=== PATIENT | female | born 1970 ===

== ENCOUNTER 2017-03-02 08:31 | Day surgery (SDC) | payer OTHER ==
[2017-02-21 14:07] VITALS: BMI 27.3
[~2017-03-02 08:31] MED LIST: Acetaminophen-Codeine 300/30 mg Tab PO PRN; Dextrose 5%/0.45% NS 1,000 ML IV SCH; ceFAZolin 1 gm FROZEN Premix 0 GM/0 ML ML IVPB ONE
[2017-03-02] MEDS ORDERED: Lactated Ringer's 1,000 ML IV ONE (11:10)
[2017-03-02] MEDS ORDERED: Midazolam 2 MG/2 ML VIAL ONE (11:19)
[2017-03-02] MEDS ORDERED: Propofol 10 mg/ml Inj (20 ML) ONE ×2 (11:19→11:36)
[2017-03-02] MEDS ORDERED: ePHEDrine 50 mg/ml Inj ONE (11:39)
[2017-03-02] MEDS ORDERED: Bacitracin Ointment 30 GM TUBE ONE (11:51)
[2017-03-02 13:04] VITALS: RESP 18
[2017-03-02 14:21] VITALS: BP 106/61; PULSE 69; TEMP 98; O2SAT 100
--- NOTE | 2017-03-03 16:18 | OP ---
PROCEDURE DATE: 03/02/2017 PREOPERATIVE DIAGNOSIS: Earlobe laceration. POST OPERATIVE DIAGNOSIS: Earlobe laceration. PROCEDURE: Bilateral earlobe laceration repair. SIGNIFICANT FINDINGS: Ear lobe laceration. DESCRIPTION OF PROCEDURE: The patient was brought in room, placed in supine position. Anesthesia wa s initiated through IV sedation. The patient's head was turned. The left ear was prepped and draped in the usual sterile manner. The edges of the incision and that were facing each other were denuded of scar tissue. It was noted that the incision was not through the ear lobe all the way inferiorly, sutures were used to approximate the edges together after they were freshened up by removing the sca r tissue. The head was turned. The other ear was prepped and draped in the usual sterile manner. I t was noted that this laceration also did not go through and through all the way inferiorly to the ea r lobe. The scar tissue that was on the inner side of the incision was removed to denude the edges a nd create fresh edges. Sutures were used to suture the 2 sides together. At that point, the patient was taken off anesthesia and taken to recovery room in stable manner. Shane Massey MD cc: [id number] TT: 03/03/2017 16:18:25 jn
== END 2017-03-02 13:50 | disposition home or self-care (01) ==
LOC: C.SDS 08:31
PROVIDERS: ATTEND Otolaryngology
DX: H61 Other disorders of external ear (principal); L91.0 Hypertrophic scar
CPT/HCPCS: 11442; J1100; J2250; J2405; J2704; J3010; J7120

== ENCOUNTER 2017-04-12 01:12 | Emergency (ER) | payer OTHER ==
[2017-04-12 01:13] VITALS: BMI 27.3
[2017-04-12] MEDS ORDERED: Sodium Chloride 0.9% 1,000 ML IV ONE (01:56)
[2017-04-12] MEDS ORDERED: Sodium Chloride 0.9% 1,000 ML ONE (02:05)
--- NOTE | 2017-04-12 02:33 | C.PDOC ---
History Of Present Illness 46 year old patient presents to the ED complaining of a right sided headache for 3 days. Patient states she feels a heat sensation to her face and as if hot water if running down the side of her head. She notes she had mild light headedness on the first day, but it resolved. She still has associated symptoms of nausea and photophobia. Patient also complains of a sour taste in her mouth and thirst. Patient denies fever or vomiting. Time Seen by Provider: 04/12/17 01:41 Chief Complaint (Nursing): Headache History Per: Patient History/Exam Limitations: no limitations Onset/Duration Of Symptoms: Days (3) Current Symptoms Are (Timing): Still Present Severity: Mild Pain Scale Rating Of: 3 Quality: "Pain" Preceeding Symptoms: None Associated Symptoms: Photophobia, Nausea Recent travel outside of the [place]: No Past Medical History Reviewed: Historical Data, Nursing Documentation, Vital Signs Vital Signs: Last Vital Signs Temp 97 F L 04/12/17 01:21 Pulse 74 04/12/17 01:21 Resp 18 04/12/17 01:21 BP 127/87 04/12/17 01:21 Pulse Ox 98 04/12/17 04:53 - Medical History PMH: Anxiety, Asthma, Depression, Gastritis, Gall Bladder Disease Surgical History: Cholecystectomy, Endoscopy - [facility] Procedures LAPAROSCOP LYSIS-PERITONEAL ADHES (05/21/15) LAPAROSCOPIC CHOLECYSTECTOMY (05/21/15) Family History: States: Unknown Family Hx - Social History Hx Alcohol Use: No Hx Substance Use: No Review Of Systems Except As Marked, All Systems Reviewed And Found Negative. Constitutional: Negative for: Fever ENT: Positive for: Other (sour taste in mouth; increased thirst) Cardiovascular: Positive for: Light Headedness. Negative for: Chest Pain, Palpitations Gastrointestinal: Positive for: Nausea. Negative for: Vomiting Musculoskeletal: Negative for: Neck Pain Skin: Negative for: Rash Neurological: Positive for: Headache, Other (photophobia). Negative for: Weakness, Numbness Physical Exam - Physical Exam Appears: Non-toxic, No Acute Distress Skin: Warm, Dry Head: Atraumatic, Normacephalic Eye(s): bilateral: Normal Inspection, PERRL, EOMI Ear(s): Bilateral: Normal Nose: Normal Oral Mucosa: Moist Throat: Normal Neck: Normal ROM, Supple Chest: Symmetrical Cardiovascular: Rhythm Regular Respiratory: Normal Breath Sounds, No Rales, No Rhonchi, No Wheezing Back: Normal Inspection, No CVA Tenderness Extremity: Bilateral: Atraumatic, Normal Color And Temperature, Normal ROM Neurological/Psych: Oriented x3, Normal Speech, Normal Cranial Nerves, No Cerebellar Signs, Normal Motor, Normal Sensation Gait: Steady Other Neurological Findings: No Facial Palsy, No Tongue Deviation ED Course And Treatment O2 Sat by Pulse Oximetry: 98 (room air) Pulse Ox Interpretation: Normal - CT Scan/US Head CT Other Rad Studies (CT/US): Read By Radiologist (Sena Velázquez MD), Radiology Report Reviewed CT/US Interpretation: EXAM: CT Head Without Intravenous Contrast. CLINICAL HISTORY: 46 years old, female; Pain; Headache; Other: Headache, hot feeling , dizzy; Additional info: Headache, dizzy. TECHNIQUE: Axial computed tomography images of the head/brain without intravenous contrast. This CT exam. was performed using one or more of the following dose reduction techniques: automated exposure. control, adjustment of the mA and/or kV according to patient size, and/or use of iterative. reconstruction technique. EXAM DATE/ TIME: Exam ordered 04/12/2017 1:56 AM. COMPARISON: No relevant prior studies available. FINDINGS: Brain: Unremarkable. No hemorrhage. No significant white matter disease. No edema. Ventricles: Unremarkable. No ventriculomegaly. Bones /joints: No fractures. Soft tissues: Unremarkable. Sinuses: Unremarkable as visualized. No acute sinusitis. Mastoid air cells: Mastoid air cells are clear. Other findings: This study was protocoled on site and performed as per site directions, the images. were subsequently sent for review by radiology. IMPRESSION: No mass effect, midline shift, or hemorrhage on axial noncontrast head CT. Medical Decision Making Medical Decision Making: Impression: 46 y/o female with right sided headache Plan: * Head CT * Reglan * IV fluids Progress: CT scan shows no abnormality Upon reevaluation patient resting comfortably i n bed and reports feeling better , headache has much improved. Patient remained afebrile and normal neuro exam. Patient feels comfortable going home and will be discharged. Patient given follow up instructions. Instructed to return to ER if symptoms worsen or new symptoms arise. Disposition Counseled Patient/Family Regarding: Studies Performed, Diagnosis, Need For Followup, Rx Given - Disposition Referrals: [facility] [Outside] [facility] [Outside] Disposition: HOME/ ROUTINE Disposition Time: 04:18 Condition: STABLE Additional Instructions: Vaya a daniel mdico o la clnica en 2-5 rivera sin falta, para mas evaluacin. Dixon los medicamentos heaven indicado. Volver a la jessica de emergencia en cualquier momento si los sntomas persisten o empeoran. Prescriptions: Acetaminophen/Butalbital/Caf [Fioricet] 1 tab PO TID PRN #20 tab PRN Reason: Headache Instructions: Migraine Headache (ED) Print Language: TAMAZIGHT - POA Present On Arrival: None - Clinical Impression Clinical Impression: Migraine - PA / AUTOBODY TECHNICIAN / Resident Statement MD/DO has reviewed & agrees with the documentation as recorded. - Scribe Statement The provider has reviewed the documentation as recorded by the Scribe Joann Seals All medical record entries made by the Scribe were at my direction and personally dictated by me. I have reviewed the chart and agree that the record accurately reflects my personal performance of the history, physical exam, medical decision making, and the department course for this patient. I have also personally directed, reviewed, and agree with the discharge instructions and disposition.
--- NOTE | 2017-04-12 03:55 | CT ---
EXAM: CT Head Without Intravenous Contrast CLINICAL HISTORY: 46 years old, female; Pain; Headache; Other: Headache, hot feeling , dizzy; Additional info: Headache, dizzy TECHNIQUE: Axial computed tomography images of the head/brain without intravenous contrast. This CT exam was performed using one or more of the following dose reduction techniques: automated exposure control, adjustment of the mA and/or kV according to patient size, and/or use of iterative reconstruction technique. EXAM DATE/TIME: Exam ordered 04/12/2017 1:56 AM COMPARISON: No relevant prior studies available. FINDINGS: Brain: Unremarkable. No hemorrhage. No significant white matter disease. No edema. Ventricles: Unremarkable. No ventriculomegaly. Bones/joints: No fractures. Soft tissues: Unremarkable. Sinuses: Unremarkable as visualized. No acute sinusitis. Mastoid air cells: Mastoid air cells are clear. Other findings: This study was protocoled on site and performed as per site directions, the images were subsequently sent for review by radiology. IMPRESSION: No mass effect, midline shift, or hemorrhage on axial noncontrast head CT.
[2017-04-12 05:18] VITALS: BP 132/80; PULSE 70; RESP 20; TEMP 98.6; O2SAT 99
== END 2017-04-12 05:16 | disposition home or self-care (01) ==
LOC: C.ER 01:12
DX: G43.909 Migraine, unspecified, not intractable, without status migrainosus (principal)
CPT/HCPCS: 70450; 96360; 99284; J2765; J7040